=== PATIENT | female | born 1935 | race Hispanic/Latino ===

== ENCOUNTER 2019-12-08 09:56 | Outpatient (RCR) | payer MEDICARE | END 2019-12-09 | LOC: PT 09:56 | PROVIDERS: ATTEND Neurological Surgery | DX: M48.062 Spinal stenosis, lumbar region with neurogenic claudication (principal) ==

== ENCOUNTER 2019-12-21 10:00 | Outpatient (RCR) | payer MEDICARE | END 2020-01-09 | LOC: PT 10:00 | PROVIDERS: ATTEND Neurological Surgery | DX: M48.062 Spinal stenosis, lumbar region with neurogenic claudication (principal); M54.5 Low back pain; M62.81 Muscle weakness (generalized); R26.2 Difficulty in walking, not elsewhere classified; M53.86 Other specified dorsopathies, lumbar region | CPT/HCPCS: 97139 ==